=== PATIENT | male | born 1935 ===

== ENCOUNTER 2016-10-14 13:33 | Emergency (ER) | payer MEDICARE, MEDICAID ==
[2016-10-14 14:01] VITALS: TEMP 98.4; O2SAT 98
--- NOTE | 2016-10-14 14:53 | C.PDOC ---
History Of Present Illness 80 yr old male presents to the ER for evaluation of non productive cough and clear/white phlegm for the past 3 days. Patient also reports of mild nasal congestion. Patient states he saw his PMD who prescribed Zithromax and a cough syrup which he has been taking for the past 2 days but is still coughing. Patient is requesting new medications. Patient denies fever, chills, chest pain , SOB, nausea, vomiting, abdominal pain, diarrhea, headache, weakness or numbness. Time Seen by Provider: 10/14/16 14:17 Chief Complaint (Nursing): Cough, Cold, Congestion History Per: Patient History/Exam Limitations: no limitations Onset/Duration Of Symptoms: Days (3) Current Symptoms Are (Timing): Still Present Sick Contacts (Context): None Past Medical History Reviewed: Historical Data, Nursing Documentation, Vital Signs Vital Signs: Last Vital Signs Temp 98.4 F 10/14/16 13:58 Pulse 72 10/14/16 15:15 Resp 18 10/14/16 15:15 BP 142/71 10/14/16 15:15 Pulse Ox 98 10/14/16 17:02 - Medical History PMH: Bronchitis, HTN, Pneumonia Surgical History: Hernia Repair - [facility] Procedures LINEAR REP LID LACER (07/03/14) TETANUS TOXOID ADMINIST (07/03/14) Family History: States: No Known Family Hx - Social History Hx Tobacco Use: No Hx Alcohol Use: Yes Hx Substance Use: No - Immunization History Hx Tetanus Toxoid Vaccination: Yes (07/03/2014) Hx Influenza Vaccination: Yes Hx Pneumococcal Vaccination: Yes Review Of Systems Except As Marked, All Systems Reviewed And Found Negative. Constitutional: Negative for: Fever, Chills Cardiovascular: Negative for: Chest Pain Respiratory: Positive for: Cough (Non productive ), Other (Clear/white phelgm). Negative for: Shortness of Breath Gastrointestinal: Negative for: Nausea, Vomiting, Abdominal Pain, Diarrhea Neurological: Negative for: Weakness, Numbness, Headache Physical Exam - Physical Exam Appears: Well, Non-toxic, No Acute Distress Skin: Warm, Dry, No Rash Head: Atraumatic, Normacephalic Eye(s): bilateral: Normal Inspection, PERRL, EOMI Oral Mucosa: Moist Throat: Normal, No Erythema, No Exudate, No Drooling Neck: Normal, Normal ROM, Supple Chest: Symmetrical, No Deformity, No Tenderness Cardiovascular: Rhythm Regular, No Murmur Respiratory: Normal Breath Sounds, No Rales, No Rhonchi, No Stridor, No Wheezing Gastrointestinal/Abdominal: Normal Exam, Soft, No Tenderness, No Guarding, No Rebound Back: Normal Inspection Extremity: Normal ROM, No Swelling Neurological/Psych: Oriented x3, Normal Speech, Normal Motor ED Course And Treatment O2 Sat by Pulse Oximetry: 98 - Other Rad CXR X-Ray: Viewed By Me, Read By Radiologist Interpretation: HISTORY: cough. COMPARISON: 09/03/2015. TECHNIQUE: Chest PA and lateral. FINDINGS: LUNGS: No active pulmonary disease. PLEURA: No significant pleural effusion identified. No pneumothorax apparent. CARDIOVASCULAR: No radiographic findings to suggest acute or significant cardiovascular disease. OSSEOUS STRUCTURES: No significant abnormalities. VISUALIZED UPPER ABDOMEN: Normal. OTHER FINDINGS: None. IMPRESSION: No active disease. No significant interval change compared to the prior examination (s). . Concordant results with the preliminary interpretation rendered by the emergency department physician\PA at the conclusion of the procedure. Progress Note: CXR was ordered and is negative for any infiltrates. Patient is given 1 treatment of Duoneb. On reevaluation, patient reports he feels better and is comfortable being discharged home. Medical Decision Making Medical Decision Making: PLAN: * CXR * Albuterol INH Disposition Counseled Patient/Family Regarding: Studies Performed, Diagnosis, Need For Followup, Rx Given - Disposition Referrals: Leah Fraser MD [Non-Staff] - Disposition: HOME/ ROUTINE Disposition Time: 14:51 Condition: STABLE Additional Instructions: FOLLOW UP WITH PMD IN 1-2 DAYS FOR RE-EVALUATION. OFFICAL XRAY REPORT IS PENDING. IF SYMPTOMS GET WORSE OR ANY NEW CONCERNING SYMPTOMS DEVELOP RETURN TO ED. Prescriptions: Albuterol HFA [Ventolin HFA 90 mcg/actuation (8 g)] 2 puff IH Q4H PRN #1 bottle PRN Reason: Cough Forms: Gen Discharge Inst [place] - Clinical Impression Clinical Impression: Bronchitis - PA / E [employer] ARCHITECT / Resident Statement /DO has reviewed & agrees with the documentation as recorded. - Scribe Statement The provider has reviewed the documentation as recorded by the Scribe Rin Mckenna All medical record entries made by the Shaq were at my direction and personally dictated by me. I have reviewed the chart and agree that the record accurately reflects my personal performance of the history, physical exam, medical decision making, and the department course for this patient. I have also personally directed, reviewed, and agree with the discharge instructions and disposition.
[2016-10-14] MEDS ORDERED: Albuterol-Ipratrop 3 mg / 0.5 (3 ml) UD INH STA (14:58)
[2016-10-14 15:16] VITALS: BP 142/71; PULSE 72; RESP 18
--- NOTE | 2016-10-14 16:11 | RAD ---
HISTORY: cough COMPARISON: 09/03/2015. TECHNIQUE: Chest PA and lateral FINDINGS: LUNGS: No active pulmonary disease. PLEURA: No significant pleural effusion identified. No pneumothorax apparent. CARDIOVASCULAR: No radiographic findings to suggest acute or significant cardiovascular disease. OSSEOUS STRUCTURES: No significant abnormalities. VISUALIZED UPPER ABDOMEN: Normal. OTHER FINDINGS: None. IMPRESSION: No active disease. No significant interval change compared to the prior examination(s). Concordant results with the preliminary interpretation rendered by the emergency department physician procedure.
== END 2016-10-14 15:18 | disposition home or self-care (01) ==
LOC: C.ER 13:33
DX: J40 Bronchitis, not specified as acute or chronic (principal)